=== PATIENT | male | born 1980 ===

== ENCOUNTER 2025-05-08 08:50 | Emergency (ER) | payer MEDICARE, OTHER ==
[~2025-05-08] VITALS: Ht 188 cm; Wt 72.8 kg
--- NOTE | 2025-05-08 10:09 | Physician Documentation ---
History of Present Illness ~ Chief Complaint: ETOH Stated Complaint: ETOH WITHDRAWLS Time Seen by MD: 09:40 HPI 44-year-old male with a history of alcoholism presents to the ED with a reported alcohol withdrawals and reported hallucinations yesterday evening while trying to sleep. States that he has not drank for four days denies any history of seizures secondary to alcohol withdrawal. Denies any chest pain reports anxiety and feeling shaky. Denies any history of cirrhosis. States he is interested in stopping drinking alcohol Medication Reconciliation Allergies: Coded Allergies: No Known Allergies (Unverified , 05/08/25) Scheduled Chlordiazepoxide Hcl (Librium), 25 MG PO TID Folic Acid* (Folic Acid*), 1 TAB PO DAILY Naltrexone Hcl (Naltrexone Hcl), 1 TAB PO DAILY Thiamine Mononitrate (Vitamin B-1), 100 MG PO DAILY Discontinued Medications Chlordiazepoxide Hcl (Librium), 25 MG PO TID Discontinued Reason: Prescription changed Review of Systems ROS Reviewed in full. All negative except for pertinent positive HPI. Physical Exam Vital Signs: Temperature: 97.3, Source: Temporal, Heart Rate: 75, Respiratory Rate: 16, BP: 133/99, Pulse Oximetry: 100, Weight: 72.800 Oxygen Flow Rate: 0 Physical Exam Awake , alert, and oriented x4, resting comfortably in the bed, in mild distress HEENT: Atraumatic, normocephalic, EOMI, anicteric sclera ; pink conjunctiva Neck: Trachea midline. Supple, full range of motion, no JVD Cardiac: Regular rhythm, tachycardia with no murmurs all over the precordium. Respiratory: Equal breath sounds bilaterally, no tachypnea, no wheezing ,rub or rales, Chest wall is symmetric and without deformity. Gastrointestinal: Abdomen symmetric, non-distended, soft, non-tender, normal bowel sounds x4 quadrant, normoactive, no hepatosplenomegaly Musculoskeletal: No pedal edema, no cyanosis Neurological: Mental status exam: alert and consciousness, orientation, memory, mild slurred speech - Cranial nerve test: Cranial nerves 2-12 intact - Motor system: Nutrition, Tone 3+, Power 5/5, no involuntary movements - Sensory system: Intact - Reflex testing: Biceps, triceps and knee reflexes 2+ - Cerebellar: Normal Skin: Warm and dry Progress Results/Orders Results/Orders Medications Received in ER Medications (Trade) Dose Ordered Sig/Sissy Route PRN Reason Start Time Stop Time Status Last Admin Dose Admin (Valium inj) 10 mg ONCE ONCE IV 05/08/25 10:00 05/08/25 10:02 DC 05/08/25 10:22 10 MG (folic acid inj.) 1 mg ONCE ONCE IV 05/08/25 10:00 05/08/25 10:02 DC 05/08/25 10:19 1 MG (thiamine inj.) 100 mg ONCE ONCE IV 05/08/25 10:00 05/08/25 10:08 DC 05/08/25 10:22 100 MG (0.9% sodium chloride (NS) 1000ml IV soln) 2,000 ml ONCE ONCE IVB 05/08/25 10:00 05/08/25 10:02 DC 05/08/25 10:22 2,000 ML Vital Signs 05/08/25 05/08/25 05/08/25 05/08/25 09:18 09:47 10:15 10:22 Temp 97.3 Pulse 86 75 Resp 18 16 20 18 B/P (MAP) 145/93 133/99 (110) Pulse Ox 98 100 O2 Flow Rate 0 0 05/08/25 05/08/25 05/08/25 05/08/25 11:01 11:32 12:24 13:37 Temp 97.6 97.6 97.3 97.6 Pulse 83 75 77 83 Resp 16 16 18 20 B/P (MAP) 121/87 (98) 137/96 (110) 132/92 (105) 138/98 Pulse Ox 100 100 100 99 O2 Flow Rate 0 0 0 Laboratory Tests Test 05/08/25 10:08 05/08/25 11:46 05/08/25 12:40 White Blood Count 4.5 Red Blood Count 4.38 L Hemoglobin 14.3 Hematocrit 42.1 Mean Corpuscular Volume 96.2 Mean Corpuscular Hemoglobin 32.7 H Mean Corpuscular Hemoglobin Concent 34.0 Red Cell Distribution Width 15.2 H Platelet Count 146 Mean Platelet Volume 8.2 Neutrophils (%) (Auto) 53.9 Lymphocytes (%) (Auto) 26.5 Monocytes (%) (Auto) 16.0 H Eosinophils (%) (Auto) 2.8 Basophils (%) (Auto) 0.8 Neutrophils # (Auto) 2.4 Lymphocytes # (Auto) 1.2 Monocytes # (Auto) 0.7 Eosinophils # (Auto) 0.1 Basophils # (Auto) 0.0 CBC Comment Differential Total Cells Counted 100 Neutrophils % (Manual) 52.0 Lymphocytes % (Manual) 30.0 Monocytes % (Manual) 15.0 H Eosinophils % (Manual) 3.0 Platelet Estimate Normal Large Platelets Few Red Blood Cell Morphology Normal Basophilic Stippling Sodium Level 138 Potassium Level 4.2 Chloride Level 102 Carbon Dioxide Level 31.2 Anion Gap 5 L Blood Urea Nitrogen 10 Creatinine 0.69 Estimated GFR/1.73 m2 > 90 BUN/Creatinine Ratio 14.5 Glucose Level 95 Calcium Level 8.7 Total Bilirubin 1.2 H Aspartate Amino Transf (AST/SGOT) 140 H Alanine Aminotransferase (ALT/SGPT) 124 H Alkaline Phosphatase 111 Total Protein 7.7 Albumin 3.4 Globulin 4.3 Albumin/Globulin Ratio 0.8 L Lipase 131 H Chemistry Comments Urine Specimen Description Urinal Urine Color Yellow Urine Clarity Clear Urine pH 6.0 Urine Specific [place] <=1.005 Urine Protein Negative Urine Glucose (UA) Negative Urine Ketones Negative Urine Occult Blood Negative Urine Nitrite Negative Urine Bilirubin Negative Urine Urobilinogen 0.2 Urine Leukocyte Esterase Negative Urine Culture Indicated Not ind Volume Urine Centrifuged 10 ml Urine Comment Ammonia 33 H Medical Decision Making Additional information obtaine: old records Findings Alcohol withdrawal CIWA score 10 Patient has episodes of hallucinations visual and auditory the past 4 days Patient also has tremors, tachycardic, actively withdrawing Last drink- 4 days ago He admits to drinking about 1 pt of whiskey daily the past few years Claims he started drinking after the of his brother Plan Patient is stable for discharge as he is motivated to stop drinking He was specifically counseled regarding the consequences of drinking in the possible complications Discharge medications: Patient to be discharged on Librium, naltrexone, folic acid, thiamine and glucose pills He was also counseled regarding resources like [facility] Alcohol group, if symptoms worsen Patient did not experience further complications throughout the stay. Patient was seen and examined and labs, diagnostic workups, discharge plan discussed with patient in details during visit before discharge. All questions and concerns answered to the best of my professional knowledge. Differential Dx:Considerations: Sub. Abuse-intermittent Additional Comment Alcohol withdrawal Departure Disposition: 01 HOME / SELF CARE / HOMELESS Impression: Primary Impression: Alcohol withdrawal syndrome Condition: Improved Discharge Instructions: Alcohol Intoxication Referrals: NO PRIMARY CARE PROVIDER (PCP) Prescriptions Chlordiazepoxide Hcl (Librium) 25 Mg Capsule 25 MG PO TID for alcohol withdrawl for 5 Days, #15 CAP 0 Refills Prov: ALBERTO DE SANTIAGO NP 05/08/25 Folic Acid* (Folic Acid*) 0.4 Mg Tablet 1 TAB PO DAILY for 30 Days, #30 TAB Prov: RAMAN THORNTON, RES 05/08/25 Thiamine Mononitrate (Vitamin B-1) 100 Mg Tablet 100 MG PO DAILY for 30 Days, #30 TAB Prov: RAMAN THORNTON, RES 05/08/25 Naltrexone Hcl (Naltrexone Hcl) 50 Mg Tablet 1 TAB PO DAILY for 30 Days, #30 TAB 0 Refills Prov: ALBERTO DE SANTIAGO NP 05/08/25 Education Educated: Patient Educated regarding: diagnosis Signature Scribe Signature: No scribe Attestation: Raman Thornton MD Internal Medicine Resident, PGY-2 ALBERTO DE SANTIAGO NP May 08, 2025 10:09 RAMAN THORNTON, COURT May 08, 2025 11:48 DEVANTE OLSON MD May 08, 2025 17:45
[2025-05-08 10:18] LABS: MEAN PLATELET VOLUME 8.2 FL (7.4-10.4); RED CELL DISTRIBUTION WIDTH 15.2 % (11.5-14.5)
[2025-05-08] MEDS: folic acid 1mg/0.2ml inj IV ONE (10:19)
[2025-05-08] MEDS: normal saline 1000ML IV soln IVB ONE (10:22)
[2025-05-08] MEDS: thiamine 100mg/ml 2ml inj. IV ONE (10:22)
[2025-05-08] MEDS: diazepam inj 5 MG/ML inj. IV ONE (10:22)
[2025-05-08 10:30] LABS: CREATININE 0.69 MG/DL (0.60-1.10); TOTAL CARBON DIOXIDE 31.2 MMOL/L (24-32); eCRCL 141 ML/MIN; eGFR > 90 ML/MIN
[2025-05-08 11:17] LABS: EOSINOPHILS % (MANUAL) 3.0 % (0-6); LYMPHOCYTES % (MANUAL) 30.0 % (21-51); MONOCYTES % (MANUAL) 15.0 % (2-12); NEUTROPHILS % (MANUAL) 52.0 % (42-75)
[2025-05-08 11:18] LABS: LARGE PLATELETS FEW; PLATELET ESTIMATE NORMAL
[2025-05-08] MEDS ORDERED: NALT50TA5 PO (12:08)
[2025-05-08] MEDS ORDERED: CHLO25CA10 PO (12:08)
[2025-05-08 12:11] LABS: LEUKOCYTE ESTERASE ,URINE NEGATIVE (Neg); NITRITES, URINE NEGATIVE (Neg); OCCULT BLOOD,URINE NEGATIVE (Neg)
[2025-05-08 12:20] LABS: UA COLLECTION TYPE URINAL
[2025-05-08] MEDS ORDERED: THIA100T70 PO (12:28)
[2025-05-08] MEDS ORDERED: FOLI0.4T6 PO (12:28)
[2025-05-08 13:37] VITALS: BP 138/98; PULSE 83; RESP 20; TEMP 97.6; O2SAT 99
== END 2025-05-08 13:43 | disposition home or self-care (01) ==
LOC: ER 08:51
DX: F10.239 Alcohol dependence with withdrawal, unspecified (principal); Y90.9 Presence of alcohol in blood, level not specified
CPT/HCPCS: 36415; 80053; 81003; 82140; 82607; 83690; 85025; 96374; 96375; 99285; J3360; J3411; J3490; J7030; 85007